=== PATIENT | female | born 1945 | race Caucasian/White ===

== ENCOUNTER 2016-12-26 16:53 | Outpatient (CLI) | payer MEDICARE, OTHER ==
[2013-11-23 18:54] VITALS: BP 165/85
[2016-12-26 17:09] LABS: BASOPHILS % 0.8 (0.0-1.5); EOSINOPHILS % 3.6 % (0.0-6.8); MEAN CORPUSCULAR HEMOGLOBIN 31.7 pg (28.0-34.0); MEAN CORPUSCULAR VOLUME 94.1 fl (80.0-100.0); MONOCYTES % 3.9 % (0.0-11.0); NEUTROPHILS # 6.6 # k/uL (1.4-7.7)
[2016-12-26 17:31] LABS: eGFR (African) 44; eGFR (Non-African) 37
--- NOTE | 2016-12-26 23:22 | Diagnostic Imaging Report ---
RIA PERDOMO [facility] [address] [facility] [address] [address] Report Submission Date: Dec 26, 2016 6:22:41 PM CDT Patient Study Name: REINALDO BALIEY Date: Dec 26, 2016 5:09:00 PM CDT Modality Type: CR Gender: F Description: SPINE : 49 Institution: [facility] Physician: RIA PERDOMO Examination: Lumbar spine History: Increasing back discomfort Comparison exam: None provided Findings: 3 views of the lumbar spine demonstrate posterior fixation of L4 and L5. Listhesis approximately 15%. Mild listhesis of L5 on S1 approximately 5%. Vertebral bodies demonstrate normal height. Tilt to the left identified on the anterior posterior film. Pelvic phleboliths. Atherosclerotic disease involving the aortoiliac vessels. Impression: Lumbar degenerative changes and listhesis. Posterior fixation. No compression deformity. Electronically signed on Dec 26, 2016 6:22:41 PM CDT by: Bora MARTIN
== END 2016-12-26 16:54 ==
LOC: LAB 16:53
PROVIDERS: ATTEND Physician Assistant
DX: M54.5 Low back pain (principal)
CPT/HCPCS: 36415; 72100; 80053; 85025

== ENCOUNTER 2017-12-29 08:51 | Emergency (ER) | payer MEDICARE, OTHER ==
[2017-12-29] MEDS ORDERED: 0.9 % SODIUM CHLORIDE 1,000 ML IV ONE ×3 (08:59)
[2017-12-29] MEDS ORDERED: INSULIN REGULAR, HUMAN 100 UNIT/ML 3ML VIAL IV ONE (09:00)
[2017-12-29 09:10] LABS: BASOPHILS % 0.1 (0.0-1.5); EOSINOPHILS % 0.7 % (0.0-6.8); MEAN CORPUSCULAR HEMOGLOBIN 31.6 pg (28.0-34.0); MONOCYTES % 2.5 % (0.0-11.0); NEUTROPHILS # 9.4 # k/uL (1.4-7.7)
[2017-12-29 09:17] LABS: ABG BASE EXCESS -4.9 (-2 - +2); ABG PH 7.43 (7.35-7.45)
[2017-12-29 09:21] LABS: eGFR (African) 38; eGFR (Non-African) 32
--- NOTE | 2017-12-29 09:53 | ED Physician Documentation ---
General Adult - HISTORIAN Historian: patient, paramedics - HPI Stated Complaint: weakness Chief Complaint: General Adult Further Comments: yes (72 year old female patient presents with complaints of weakness, dizziness. Patient reports her airconditioner went out yesterday or day before, is unsure. Cannot recall last time she took her insulin. "I always forget". Oriented to person and place. Cannot recall day or year.) - ROS CONST: no problems (Altered mental status - difficulty with ROS due to Orientation x1) EYES/ENT: none CVS/RESP: none GI/: none MS/SKIN/LYMPH: none NEURO/PSYCH: denies: headache - PAST HX Past History: hypertension, other (CKD, hypothyroidism) Other History: diabetes Type 2 Surgeries/Procedures: cholecystectomy, other (left knee arthroscopy, breast biopsy, carpal tunnel, cataract, colectomy, colostomy, lumbar fusion, proctectomy, tonsilectomy) Allergies/Adverse Reactions: Allergies Allergy/AdvReac Type Severity Reaction Status Date / Time Penicillins Allergy Verified 12/29/17 09:08 - SOCIAL HX Smoking History: denies: non-smoker - FAMILY HX Family History: No - VITAL SIGNS Vital Signs: Vital Signs Temp Pulse Resp BP Pulse Ox 97.9 F 81 16 126/51 95 12/29/17 08:51 12/29/17 08:51 12/29/17 08:51 12/29/17 08:51 12/29/17 09:30 - REVIEWED ASSESSMENTS Nursing Assessment Reviewed: Yes Vitals Reviewed: Yes Progress - Progress Progress: Reviewed old charts. History of hyponatremia noted 130-132; patient oriented to person only. Reports it's "", does not know year. Blood sugar 576 - will start on insulin drip. Discussed plan of care with patient, requested we call Catie for discussion on transfer. Patient states she has never been to [facility] or [place]. 1050 Call to patient's daughter Catie - patient has been seen at [facility] for neuro consult in past. Reports patient has been seen at [facility] multiple times for consultations. Would like patient transferred to [facility]. Daughter reports patient has air conditioning window unit in her living room which she did not turn on. Patient did not remember she had it. Daughter reports patient frequently forgets her medication; family does not want patient living alone. Patient refuses alf or assisted living. [address] Gibson - Internal medicine; at [facility]. - EKG/XRAY/CT EKG: rhythm ([place]; Rate 79 unifocal PVCs.) ED Results Lab/Radiology - Lab Results Lab Results: Lab Results 12/29/17 12/29/17 12/29/17 09:10 09:00 09:00 WBC RBC Hgb Hct MCV MCH MCHC RDW Plt Count Neut % (Auto) Lymph % (Auto) [place] % (Auto) Eos % (Auto) Baso % (Auto) Neut # (Auto) Lymph # (Auto) [place] # (Auto) Eos # (Auto) Baso # (Auto) Reactive Lymphs % Reactive Lymphs # pH 7.43 (7.35-7.45) pCO2 27 mmhg L mmhg (35-48) pO2 69 mmhg L mmhg (83-108) HCO3 21.0 Meq/L Meq/L (21-28) ABG O2 Sat Calc/Jose 99 % % (93-100) ABG Base Excess -4.9 L (-2 - +2) Sodium 121 mmol/L L mmol/L (136-145) Potassium 4.3 mmol/L mmol/L (3.5-5.1) Chloride 88 mmol/L L mmol/L (98-107) Carbon Dioxide 17 mmol/L L mmol/L (22-30) BUN 26 mg/dL H mg/dL (7-17) Creatinine 1.70 mg/dL H mg/dL (0.52-1.04) Est GFR ( Amer) 38 L (60 - ) Est GFR (Non-Af Amer) 32 L (60 - ) Glucose 667 mg/dL H* mg/dL (74-106) Lactate 1.6 U/L U/L (0.7-2.1) Calcium 8.8 mg/dL mg/dL (8.4-10.2) Total Bilirubin 0.8 mg/dL mg/dL (0.2-1.3) AST 14 U/L L U/L (15-46) ALT 20 U/L U/L (13-69) Alkaline Phosphatase 65 U/L U/L (38-126) Creatine Kinase 92 U/L U/L (30-135) CK-MB (CK-2) 1.9 ng/mL ng/mL (0.0-5.6) Troponin I < 0.03 ng/mL L ng/mL (0.03-0.06) Total Protein 6.3 g/dL g/dL (6.3-8.2) Albumin 3.8 g/dL g/dL (3.5-5.0) 12/29/17 09:00 WBC 12.10 K/ul H K/ul (4.00-12.00) RBC 4.10 M/ul M/ul (3.90-5.20) Hgb 13.0 g/dL g/dL (12.0-16.0) Hct 38.6 % % (34.5-46.5) MCV 94.0 fl fl (80.0-100.0) MCH 31.6 pg pg (28.0-34.0) MCHC 33.7 g/dL g/dL (30.0-36.0) RDW 12.5 % % (11.3-14.3) Plt Count 297 K/mm3 K/mm3 (130-400) Neut % (Auto) 77.7 % % (39.0-79.0) Lymph % (Auto) 18.2 % % (16.0-50.0) [place] % (Auto) 2.5 % % (0.0-11.0) Eos % (Auto) 0.7 % % (0.0-6.8) Baso % (Auto) 0.1 (0.0-1.5) Neut # (Auto) 9.4 # k/uL H # k/uL (1.4-7.7) Lymph # (Auto) 2.2 # k/uL # k/uL (0.6-4.0) [place] # (Auto) 0.3 # k/uL # k/uL (0.0-0.9) Eos # (Auto) 0.1 # k/uL # k/uL (0.0-0.6) Baso # (Auto) 0.0 # k/uL # k/uL (0.0-0.5) Reactive Lymphs % 0.8 % % (0.0-5.0) Reactive Lymphs # 0.1 # k/uL # k/uL (0.0-0.8) pH pCO2 pO2 HCO3 ABG O2 Sat Calc/Jsoe ABG Base Excess Sodium Potassium Chloride Carbon Dioxide BUN Creatinine Est GFR ( Amer) Est GFR (Non-Af Amer) Glucose Lactate Calcium Total Bilirubin AST ALT Alkaline Phosphatase Creatine Kinase CK-MB (CK-2) Troponin I Total Protein Albumin - Radiology Radiology Impressions: Examination: CT head without contrast History: ALTERED MENTAL STATUS (Hx) Comparison exam: None available Technique: Noncontrast head CT protocol. Findings: Ventricles and sulci are prominent, though consistent for patient age. Cerebrocerebellar parenchyma demonstrates periventricular low attenuation consistent with small vessel disease. No evidence for parenchymal hemorrhage. No evidence for mass or mass effect. No midline shift. No extra axial fluid collections. Partial visualization of the paranasal sinuses, mastoid air cells, orbits, skull and scalp without gross irregularity. Anterior falx calcifications. Streak artifact from dental hardware. Impression: Age related changes. No acute parenchymal process. No hemorrhage. Electronically signed on Dec 29, 2017 10:33:38 AM CDT by: Bora Dewey Examination: PA and lateral chest. History: HYPOXIA PATIENT STATES WEAKNESS IN LEGS X 1 DAY (Hx) Comparison exam: None provided. Findings: PA lateral chest demonstrate a normal cardiac and mediastinal silhouette. Vascular calcifications involving the aortic arch. Chronic interstitial changes. No focal infiltrate. No blunting of the costophrenic margins. Osseous structures are appropriate for age. Impression: Chronic appearing parenchymal changes. No acute pulmonary process. Electronically signed on Dec 29, 2017 10:35:45 AM CDT by: Bora Dewey - Orders Orders: ED Orders Category Date Time Status Arterial Blood Gas 1T Care 12/29/17 09:01 Active Continuous Pulse Oximetry Q30M Care 12/29/17 08:[address] IV Lock 1T Care 12/29/17 08:59 Active CHEST 2VIEW [RAD] Stat Exams 12/29/17 09:44 Ordered ARTERIAL BLOOD GAS Routine Lab 12/29/17 09:10 Completed CBC/PLATELET/DIFF Stat Lab 12/29/17 09:00 Completed CKMB Stat Lab 12/29/17 09:00 Completed CMP Stat Lab 12/29/17 09:00 Completed CREATINE KINASE Stat Lab 12/29/17 09:00 Completed LACTATE Stat Lab 12/29/17 09:00 Completed TROPONIN I (cTnI) Stat Lab 12/29/17 09:00 Completed UA W/MICRO IF INDICATED Stat Lab 12/29/17 08:59 Ordered 0.9 % Sodium Chloride [Normal Saline] 1,000 ml Med 12/29/17 08:59 Discontinued IV .STK-MED 0.9 % Sodium Chloride [Normal Saline] 1,000 ml Med 12/29/17 08:59 Discontinued IV NOW 0.9 % Sodium Chloride [Normal Saline] 1,000 ml Med 12/29/17 08:59 Discontinued IV NOW Chem Sticks Med 12/29/17 09:00 Ordered 1 each MC PRN Insulin Regular, Human [Humulin R] Med 12/29/17 09:00 Discontinued 10 unit IV NOW ONE Oxygen Daily Oxygen 12/29/17 09:00 Ordered EKG WITH COMPARISON Stat Ther 12/29/17 08:59 Completed General Adult Physical Exam - PHYSICAL EXAM GENERAL APPEARANCE: mild distress EENT: eye inspection normal, ENT inspection normal, pharynx normal, no signs of dehydration, KEN, no nystagmus, TM's nml RESPIRATORY: no resp distress, chest non-tender, breath sounds normal CVS: reg rate & rhythm, heart sounds normal, equal pulses, no murmur, no gallop , PMI nml, no JVD, no friction rub, other ([place] on addmission) ABDOMEN: soft, no organomegaly, normal bowel sounds, no abdominal bruit, no distension, other (RLQ colostomy - bag intact, full) BACK: normal inspection, no CVA tenderness SKIN: warm/dry, pallor EXTREMITIES: non-tender, normal range of motion, no evidence of injury, no edema , J, 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
[2017-12-29] MEDS ORDERED: 0.9 % SODIUM CHLORIDE 100 ML IV ONE (10:21)
[2017-12-29] MEDS ORDERED: INSULIN REGULAR, HUMAN 100 UNIT in 0.9 % SODIUM CHLORIDE 100 ML IV ONE ×2 (10:35)
[2017-12-29] MEDS ORDERED: DEXTROSE 5 %-0.45 % SOD CHLORD 1,000 ML IV ONE (11:44)
[2017-12-29] MEDS ORDERED: DEXTROSE 5 %-0.45 % SOD CHLORD 1,000 ML IV SCH (12:00)
[2017-12-29 12:12] VITALS: BP 148/59
[2017-12-29 12:22] LABS: APPEARANCE,URINE CLOUDY (CLEAR); COLOR,URINE YELLOW (YELLOW); OCCULT BLOOD,URINE 1+ (NEGATIVE); PH URINE 5.5 (5.0 - 8.0); UROBILINOGEN URINE 0.2 Eu (0.2-1.0)
--- NOTE | 2017-12-29 15:29 | Diagnostic Imaging Report ---
ZOEY TORRES (CLAIMS ADJUSTER SUPERVISOR) - ER [facility] [address] [address] Report Submission Date: Dec 29, 2017 10:35:45 AM CDT Patient Study Name: REINALDO BAILEY Date: Dec 29, 2017 9:49:17 AM CDT Modality Type: DX Gender: F Description: CHEST : 49 Institution: [facility] Physician: ZOEY TORRES (CLAIMS ADJUSTER SUPERVISOR) - ER Examination: PA and lateral chest. History: HYPOXIA PATIENT STATES WEAKNESS IN LEGS X 1 DAY (Hx) Comparison exam: None provided. Findings: PA lateral chest demonstrate a normal cardiac and mediastinal silhouette. Vascular calcifications involving the aortic arch. Chronic interstitial changes. No focal infiltrate. No blunting of the costophrenic margins. Osseous structures are appropriate for age. Impression: Chronic appearing parenchymal changes. No acute pulmonary process. Electronically signed on Dec 29, 2017 10:35:45 AM CDT by: Bora MARTIN
--- NOTE | 2017-12-29 15:30 | Diagnostic Imaging Report ---
ZOEY TORRES (FIBERGLASS BOAT ASSEMBLY SUPERVISOR) - ER [facility] [address] [facility] [address] [place], [place]. [address] Report Submission Date: Dec 29, 2017 10:33:38 AM CDT Patient Study Name: REINALDO BAILEY Date: Dec 29, 2017 10:06:07 AM CDT Modality Type: CT\SR Gender: F Description: CT BRAIN W/O CONTRAST : 49 Institution: [facility] Physician: ZOEY TORRES) - ER Examination: CT head without contrast History: ALTERED MENTAL STATUS (Hx) Comparison exam: None available Technique: Noncontrast head CT protocol. Findings: Ventricles and sulci are prominent, though consistent for patient age. Cerebrocerebellar parenchyma demonstrates periventricular low attenuation consistent with small vessel disease. No evidence for parenchymal hemorrhage. No evidence for mass or mass effect. No midline shift. No extra axial fluid collections. Partial visualization of the paranasal sinuses, mastoid air cells, orbits, skull and scalp without gross irregularity. Anterior falx calcifications. Streak artifact from dental hardware. Impression: Age related changes. No acute parenchymal process. No hemorrhage. Electronically signed on Dec 29, 2017 10:33:38 AM CDT by: Bora MARTIN
== END 2017-12-29 11:55 | disposition short-term general hospital (02) ==
LOC: ED 08:51
DX: R73.9 Hyperglycemia, unspecified (principal); E87.1 Hypo-osmolality and hyponatremia; R41.0 Disorientation, unspecified; N18.3 Chronic kidney disease, stage 3 (moderate)
CPT/HCPCS: 36600; 70450; 71046; 80053; 81002; 82550; 82553; 82803; 83605; 84484; 85025; 93005; J1815; J7030; 96365; 96366; 96368; 96375; 99285; S1016; S5010